=== PATIENT | male | born 1990 | race Caucasian/White ===

== ENCOUNTER 2017-01-03 03:41 | Emergency (ER) | payer BC, OTHER ==
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
[2017-01-03] MEDS ORDERED: ACETAMINOPHEN 325 MG TABLET PO ONE (05:01)
[2017-01-03] MEDS ORDERED: IBUPROFEN 600 MG TABLET PO ONE (05:01)
[2017-01-03 05:25] VITALS: BP 147/87
== END 2017-01-03 05:33 | disposition home or self-care (01) ==
LOC: ER 03:41
DX: S20.212A Contusion of left front wall of thorax, initial encounter (principal); S51.012A Laceration without foreign body of left elbow, initial encounter; R07.89 Other chest pain; V43.52XA Car driver injured in collision with other type car in traffic accident, initial encounter; Z88.7 Allergy status to serum and vaccine
CPT/HCPCS: 71010; 99283

== ENCOUNTER 2017-01-05 17:09 | Emergency (ER) | payer OTHER ==
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
[2017-01-05] MEDS ORDERED: IBUPROFEN 800 MG TABLET PO ONE (18:08)
[2017-01-05] MEDS ORDERED: ACETAMINOPHEN 325 MG TABLET PO ONE (18:08)
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
[2017-01-05 19:33] VITALS: BP 117/67
== END 2017-01-05 19:51 | disposition home or self-care (01) ==
LOC: ER 17:09
DX: S46.112A Strain of muscle, fascia and tendon of long head of biceps, left arm, initial encounter (principal); S50.02XA Contusion of left elbow, initial encounter; V49.40XA Driver injured in collision with unspecified motor vehicles in traffic accident, initial encounter
CPT/HCPCS: 99283